=== PATIENT | male | born 2000 | race Hispanic/Latino ===

== ENCOUNTER 2019-04-11 07:04 | Day surgery (SDC) | payer OTHER ==
[~2019-04-11] VITALS: Ht 182.9 cm; Wt 110.2 kg
[~2019-04-11 07:04] MED LIST: BUPIVACAINE HCL 0.5% 10 ML VIAL As Ordered ONE; BUPR150T5 PO; LEXA1TAB PO; LIDOCAINE 1% MDV 20ML VIAL As Ordered ONE; LR 1,000 ML IV ONE; MINO0.1C PO; TRAZ-252 PO; ceFAZolin SOD 2 GM in IV 1 EA IV ONE; dexameTHASONE 4 MG/ML 1ML VIAL (J1100) As Ordered ONE
[2019-04-11] MEDS ORDERED: PROPOFOL 200 MG/20 ML VIAL As Ordered ONE ×2 (08:04→08:07)
[2019-04-11] MEDS ORDERED: ONDANSETRON 4MG/2ML VIAL (J2405) As Ordered ONE (08:05)
[2019-04-11] MEDS ORDERED: PROPOFOL 500 MG/50 ML VIAL As Ordered ONE (08:05)
[2019-04-11] MEDS ORDERED: KETAMINE HCL 200 MG/20 ML VIAL As Ordered ONE (08:05)
[2019-04-11] MEDS ORDERED: LIDOCAINE 2% INJ 100 MG/5 ML SDV (FOR ANES.) As Ordered ONE ×2 (08:05→08:07)
[2019-04-11] MEDS ORDERED: fentaNYL 100 MCG/2 ML INJECTION (J3010) As Ordered ONE (08:05)
[2019-04-11] MEDS ORDERED: dexameTHASONE 4 MG/ML 1ML VIAL (J1100) As Ordered ONE ×2 (08:05→10:00)
[2019-04-11] MEDS ORDERED: MIDAZOLAM INJ 2 MG/2 ML VIAL (J2250) As Ordered ONE (08:06)
--- NOTE | 2019-04-11 11:54 | RO ---
DATE OF SURGERY: 04/11/2019 PREOPERATIVE DIAGNOSES: Left ankle chronic ankle sprain and anterior talofibular ligament (ATFL) disruption. POSTOPERATIVE DIAGNOSES: Left ankle chronic ankle sprain and anterior talofibular ligament (ATFL) disruption. PROCEDURE: Left lateral ankle repair with internal brace. SURGEON: Giuseppe Stauffer DPM LACE SEWER: None ANESTHESIA: Laryngeal mask airway (LMA) anesthesia with local anesthetic 20 mL of 1:1 mixture of 1% lidocaine plain and 0.5% Marcaine plain. ESTIMATED BLOOD LOSS: Minimal. MATERIALS: [employer] SutureTak suture ankle times two and fibula and Arthrex internal brace implant system. COMPLICATION: None. CONDITION: Stable. Simon Miramontes is a 18-year-old male who presents to [facility] with complaints of chronic ankle sprain. He has undergone numerous conservative treatments. He had an MRI which showed disruption of the anterior talofibular ligament. He presents today for surgical repair. The patient's side and site were identified and marked in the preoperative holding area. Consent was reviewed and obtained. All risks, complications, and alternatives of the procedure were explained to the patient in detail, and all questions were answered. DESCRIPTION OF PROCEDURE: The patient was brought to the operating room and placed on the operating room table in the supine position. Monitored anesthesia care was delivered by the anesthesia team. Preoperative injection of 20 mL of 1:1 mixture of 1% lidocaine plain and 0.5% Marcaine plain were injected to the left foot. The left foot was prepped and draped in normal sterile fashion. A tourniquet was applied to the left thigh and inflated to 300 mmHg. An incision was made over the lateral ankle along the distal aspect of the fibula into the foot, secured through a #15 blade. Dissection was carried down until the fibula and retinaculum were identified. Bovie was used to cauterize small bleeding vessels along the way. The ATFL was reflected off the fibula using #15 blade. Following this, two SutureTak anchors were inserted in the distal fibula, and the ATFL was repaired using the attached FiberWire suture. Following this, the Arthrex internal brace was inserted, first into the talus and then into the distal fibula, according to protocol. Greatly improved stabilization was noted following this. The repair was augmented using 2-0 Vicryl repairing the retinaculum over top of the ATFL. Following this, the site was irrigated with normal saline. Skin closure was performed with 3-0 Vicryl and 4-0 nylon. 1 mL of Decadron was injected. Sterile dressings were applied. The tourniquet was deflated, and a posterior splint was applied. The patient was brought to postanesthesia care unit (PACU) with vital signs stable and neurovascular status intact. He will be nonweightbearing and followup in office in 2 days.
[2019-04-11] MEDS ORDERED: HYDROMORPHONE HCL 0.5 MG/ 0.5 ML SYRINGE (J1170 PER 1) IV PRN (12:15)
[2019-04-11] MEDS: PERCOCET 5MG/325MG TAB PO PRN ×2 (12:15→12:42)
[2019-04-11] MEDS ORDERED: ONDANSETRON 4MG/2ML VIAL (J2405) IV PRN (12:15)
[2019-04-11] MEDS: fentaNYL 100 MCG/2 ML INJECTION (J3010) IV PRN ×4 (12:15→12:43)
[2019-04-11] MEDS ORDERED: LR 1,000 ML IV SCH (12:15)
[2019-04-11 13:45] VITALS: BP 121/59
== END 2019-04-11 13:50 | disposition home or self-care (01) ==
LOC: M SDC 07:04
PROVIDERS: ATTEND Podiatrist Foot & Ankle Surgery
DX: S93.402A Sprain of unspecified ligament of left ankle, initial encounter (principal); S93.492A Sprain of other ligament of left ankle, initial encounter; R21 Rash and other nonspecific skin eruption; F41.9 Anxiety disorder, unspecified; F32.9 Major depressive disorder, single episode, unspecified; Z79.899 Other long term (current) drug therapy; X58.XXXA Exposure to other specified factors, initial encounter; Y93.9 Activity, unspecified; Y92.9 Unspecified place or not applicable; Y99.9 Unspecified external cause status
CPT/HCPCS: 27698; 97116; C1713; J0690; J1100; J2250; J2405; J3010

== ENCOUNTER → 2019-06-12 | Outpatient (CLI) | payer OTHER ==
[~2019-06-12] MED LIST changes: -BUPIVACAINE HCL 0.5% 10 ML VIAL As Ordered ONE; -LIDOCAINE 1% MDV 20ML VIAL As Ordered ONE; -LR 1,000 ML IV ONE; -ceFAZolin SOD 2 GM in IV 1 EA IV ONE; -dexameTHASONE 4 MG/ML 1ML VIAL (J1100) As Ordered ONE
--- NOTE | 2019-06-13 06:21 | REP ---
Clinical: Wheezing. Technique: Axial noncontrast images from the thoracic inlet to the upper abdomen with coronal and sagittal re-formations. Comparison: None. Findings: The bilateral lung coello are well-aerated and clear. No consolidation. No interstitial disease. No bronchiectasis. No effusion. No pneumothorax. Tracheobronchial tree is patent. No obvious adenopathy. Mediastinum demonstrates normal thoracic aorta, pulmonary vasculature and heart/pericardium. Impression: Normal noncontrast chest CT. Electronically Signed by Maged Maria MD 06/13/2019 06:12 A
== END ==
LOC: M RAD 15:36
PROVIDERS: ATTEND Internal Medicine Pulmonary Disease
DX: R06.2 Wheezing (principal)

== ENCOUNTER → 2019-07-26 | Outpatient (REF) | payer OTHER | LOC: M SFHCLERA 09:29 | PROVIDERS: ATTEND Physician Assistant | DX: J02.9 Acute pharyngitis, unspecified (principal) ==